=== PATIENT | female | born 1995 | race Caucasian/White ===

== ENCOUNTER 2021-01-30 21:44 | Emergency (ER) | payer BC ==
[~2021-01-30] VITALS: Ht 154.9 cm; Wt 47.6 kg
[2021-01-31] MEDS ORDERED: LIDO2SOL17 SSP (01:14)
[2021-01-31] MEDS ORDERED: MAGICMW SSP (01:14)
[2021-01-31] MEDS ORDERED: LIDOCAINE VISCOUS 2% SOLN 15ML UDC SSP ONE (01:15)
[2021-01-31 01:27] VITALS: BP 111/72
== END 2021-01-31 01:51 | disposition home or self-care (01) ==
LOC: M ED 21:44
DX: K12.0 Recurrent oral aphthae (principal); Z88.0 Allergy status to penicillin; Z88.1 Allergy status to other antibiotic agents